=== PATIENT | female | born 1960 | race Caucasian/White ===

== ENCOUNTER → 2017-01-14 | Outpatient (CLI) | payer MEDICARE, SELFPAY | LOC: MRI 09:00 | DX: M54.6 Pain in thoracic spine (principal) | CPT/HCPCS: 72146 ==

== ENCOUNTER 2020-11-20 10:53 | Emergency (ER) | payer MEDICARE | END 2020-11-20 15:16 | disposition home or self-care (01) | LOC: ER1 10:53 | DX: G89.29 Other chronic pain (principal); I10 Essential (primary) hypertension; M54.5 Low back pain; F17.210 Nicotine dependence, cigarettes, uncomplicated | CPT/HCPCS: 96372; 99283; J1885 ==

== ENCOUNTER → 2021-03-24 | Outpatient (CLI) | payer MEDICARE | LOC: EXRD 09:53 | DX: M85.80 Other specified disorders of bone density and structure, unspecified site (principal); M81.8 Other osteoporosis without current pathological fracture | CPT/HCPCS: 77080 ==

== ENCOUNTER 2022-06-11 16:01 | Emergency (ER) | payer MEDICARE | END 2022-06-11 20:50 | disposition home or self-care (01) | LOC: ER1 16:01 | DX: S09.90XA Unspecified injury of head, initial encounter (principal); S32.059A Unspecified fracture of fifth lumbar vertebra, initial encounter for closed fracture; S70.02XA Contusion of left hip, initial encounter; I10 Essential (primary) hypertension; Z87.81 Personal history of (healed) traumatic fracture; W01.0XXA Fall on same level from slipping, tripping and stumbling without subsequent striking against object, initial encounter | CPT/HCPCS: 70450; 71111; 72072; 72110; 72192; 73552; 99284 ==